=== PATIENT | female | born 1985 ===

== ENCOUNTER 2025-01-27 14:10 | Outpatient (CLI) | payer MEDICAID, SELFPAY ==
--- NOTE | 2025-01-27 14:45 | CRLHL7_ITS ---
For Patients: As a result of the Cures Act, medical imaging exams and procedure reports are released immediately into your electronic medical record. You may view this report before your referring provider. If you have questions, please contact your health care provider. OB ULTRASOUND LORI by LMP: 03/10/2025. GA: 34 w, 0 d. Single. INDICATION: Maternal care of unspecified type scar. TECHNIQUE: Real time grayscale imaging of the fetus was performed. Transabdominal. CERVIX: Not visualized. POSITIONING: Vertex. AMNIOTIC FLUID: 5.8 cm. SDP (N: greater than 2 x 1 cm) PLACENTA: Technique: Transabdominal. PLACENTA POSITION: Posterior. DOPPLER: heart rate: 138 bpm. BIOMETRY: BPD: 8.1 cm. 32 w, 2 d, 9%. HC: 32.3 cm. 36 w, 3 d, 78%. AC: 30.9 cm. 34 w, 6 d, 77%. FL: 7.2 cm. 36 w, 6 d, 96%. FL/AC ratio: 23.36%. HC/AC ratio: 1.05. EFW: 2642g. Weight: 5 lbs., 13 oz. age by this US: 35 w, 1 d. LORI by this US: 03/02/2025. Percentile by LORI: 81%. IMPRESSION: 1. Sonographic gestational age 35 weeks 1 day and sonographic due date 03/02/2025. Sonographic age is 8 days ahead of the clinical age. 2. Estimated weight 83rd percentile. Abdominal circumference 77th percentile. Marty Renner M.D. Diagnostic Radiologist [email or web address] VINAYAK/teofilo red/Dictated by: Marty Renner MD @ 01/27/2025 3:00:00 PM (Electronically Signed)
== END 2025-01-27 14:11 | disposition home or self-care (01) ==
LOC: US 14:11
PROVIDERS: PCP Family Medicine; Visit Provider Obstetrics & Gynecology
DX: O34.219 Maternal care for unspecified type scar from previous cesarean delivery (principal); O36.63X0 Maternal care for excessive fetal growth, third trimester, not applicable or unspecified; Z3A.34 34 weeks gestation of pregnancy
CPT/HCPCS: 76815

== ENCOUNTER 2025-02-24 10:06 | Outpatient (CLI) | payer MEDICAID, SELFPAY ==
--- NOTE | 2025-02-24 10:15 | CRLHL7_ITS ---
For Patients: As a result of the Century Cures Act, medical imaging exams and procedure reports are released immediately into your electronic medical record. You may view this report before your referring provider. If you have questions, please contact your health care provider. OB ULTRASOUND LORI by LMP: 03/10/2025. GA: 38 w, 0 d. Single. Comparison: Ultrasound 01/27/2025. INDICATION: Desires TOLAC. Growth. TECHNIQUE: Real time grayscale imaging of the fetus was performed. Transabdominal. CERVIX: Not visualized. POSITIONING: Vertex. AMNIOTIC FLUID: 3.1 cm. SDP (N: greater than 2 x 1 cm) PLACENTA: Technique: Transabdominal. PLACENTA POSITION: Fundal. DOPPLER: heart rate: 135 bpm. BIOMETRY: BPD: 9.0 cm. 36 w, 2 d, 26%. HC: 34.4 cm. 39 w, 5 d, 71%. AC: 34.9 cm. 38 w, 6 d, 86%. FL: 7.8 cm. 40 w, 0 d, 92%. FL/AC ratio: 22.43%. HC/AC ratio: 0.98. EFW: 3613g. Weight: 7 lbs., 15 oz. age by this US: 38 w, 5 d. LORI by this US: 03/05/2025. Percentile by LORI: 82%. IMPRESSION: 1. Sonographic gestational age 38 weeks 5 days and sonographic due date 03/05/2025. Sonographic age is 5 days ahead of the clinical age. 2. Estimated weight 82nd percentile. Abdominal circumference 86th percentile. Marty Renner M.D. Diagnostic Radiologist [email or web address] VINAYAK/teofilo red/Dictated by: Marty Renner MD @ 02/24/2025 5:04:00 PM (Electronically Signed)
== END 2025-02-24 10:07 | disposition home or self-care (01) ==
LOC: US 10:07
PROVIDERS: PCP Family Medicine; Visit Provider Obstetrics & Gynecology
DX: Z34.83 Encounter for supervision of other normal pregnancy, third trimester (principal); Z3A.38 38 weeks gestation of pregnancy
CPT/HCPCS: 76816